=== PATIENT | female | born 1965 | race Caucasian/White ===

== ENCOUNTER 2017-03-24 12:32 | Emergency (ER) | payer SELFPAY ==
[~2017-03-24] VITALS: Ht 172.7 cm; Wt 100.0 kg
[~2017-03-24 12:32] MED LIST: AMOX/K CLAV875 M1 PO; ULTRAM50 M1 PO
[2017-03-24] MEDS ORDERED: MOTRIN800 MG PO (13:10)
[2017-03-24] MEDS ORDERED: TRAMADOL HYDROC50 MG PO (14:53)
[2017-03-24 15:05] VITALS: BP 119/84
== END 2017-03-24 15:05 | disposition home or self-care (01) | DRG 563 ==
LOC: ED 12:32
PROC: 2W3QX1Z Immobilization of Right Lower Leg using Splint (ICD-10-PCS; principal; 2017-03-24)
DX: M23.8X1 Other internal derangements of right knee (principal); M25.461 Effusion, right knee; X58.XXXA Exposure to other specified factors, initial encounter; Y93.02 Activity, running; Y92.009 Unspecified place in unspecified non-institutional (private) residence as the place of occurrence of the external cause

== ENCOUNTER 2017-04-26 13:15 | Emergency (ER) | payer SELFPAY ==
[~2017-04-26] VITALS: Ht 172.7 cm; Wt 81.8 kg
[~2017-04-26 13:15] MED LIST changes: +MOTRIN800 MG PO; +TRAMADOL HYDROC50 MG PO
[2017-04-26] MEDS ORDERED: NAPROSYN500 MG PO (13:45)
[2017-04-26 14:00] VITALS: BP 134/86
== END 2017-04-26 14:00 | disposition home or self-care (01) | DRG 563 ==
LOC: ED 13:15
DX: S83.91XA Sprain of unspecified site of right knee, initial encounter (principal); F41.9 Anxiety disorder, unspecified; B34.9 Viral infection, unspecified; F17.210 Nicotine dependence, cigarettes, uncomplicated; X58.XXXA Exposure to other specified factors, initial encounter

== ENCOUNTER 2021-01-06 18:39 | Emergency (ER) | payer BC ==
[~2021-01-06] VITALS: Ht 172.7 cm; Wt 75.0 kg
[~2021-01-06 18:39] MED LIST changes: +NAPROSYN500 MG PO
[2021-01-06] MEDS ORDERED: FLEXERIL5 M1 PO (20:02)
[2021-01-06] MEDS ORDERED: TRAMADOL HYDROC50 M1 PO (20:02)
[2021-01-06 20:08] VITALS: BP 118/63
== END 2021-01-06 20:14 | disposition home or self-care (01) | DRG 605 ==
LOC: ED 18:39
DX: S50.311A Abrasion of right elbow, initial encounter (principal); S50.01XA Contusion of right elbow, initial encounter; F31.9 Bipolar disorder, unspecified; F17.210 Nicotine dependence, cigarettes, uncomplicated; W10.9XXA Fall (on) (from) unspecified stairs and steps, initial encounter; Y92.028 Other place in mobile home as the place of occurrence of the external cause